=== PATIENT | female | born 2005 | race African-American/Black ===

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

== ENCOUNTER 2024-10-25 09:58 | Emergency (ER) | payer MEDICAID ==
[~2024-10-25] VITALS: Ht 172.7 cm; Wt 106.0 kg
[~2024-10-25 09:58] MED LIST: KEPP500 MT; LAMO150T5 MT
[2024-10-25 10:07] VITALS: O2SAT 97
[2024-10-25] MEDS: ACETAMINOPHEN 325MG TABLET PO NR (11:19)
[2024-10-25 13:00] VITALS: BP 130/85; PULSE 64; RESP 18; TEMP 36.8; O2SAT 100
== END 2024-10-25 13:58 | disposition home or self-care (01) ==
LOC: ER 09:58
DX: R56.9 Unspecified convulsions (principal); M79.604 Pain in right leg; F12.10 Cannabis abuse, uncomplicated; Z91.148 Patient's other noncompliance with medication regimen for other reason; Z86.59 Personal history of other mental and behavioral disorders
CPT/HCPCS: 73590; 81025; 99283